=== PATIENT | female | born 1985 | race Caucasian/White ===

== ENCOUNTER 2016-08-13 16:09 | Emergency (ER) | payer OTHER ==
[~2016-08-13 16:09] MED LIST: FLONASE16 GM; ILOTYCIN1 GM OP; KEFLEX500 MG PO; LORTAB 10-5001 EACH PO; NO MEDICATIONS; ORUDIS75 M1; ORUDIS75 M1 DOB; PAXIL PO; VOLTAREN75 MG PO
[2016-08-13 16:27] LABS: BASOPHIL% 0.8 % (0-2.5); EOSINOPHIL# 0.3 X10e3 (0-0.7); HEMATOCRIT 40.2 % (35.0-45.0); HEMOGLOBIN 13.2 gm/dL (12.0-16.0); LYMPHOCYTE# 1.8 X10e3 (1.0-3.5); LYMPHOCYTE% 33.8 % (17.0-45.0); MEAN PLATELET VOLUME 7.8 FL (6.5-11.5); MONOCYTE# 0.5 X10e3 (0-1.0); NEUTROPHIL# 2.7 X10e3 (1.5-7.1); NEUTROPHIL% 51.4 % (40-75); PLATELET COUNT 238 X10e3 (140-420); RED BLOOD COUNT 4.42 X10e (3.90-5.30); RED CELL DISTRIBUTION WIDTH 13.8 % (11.0-15.5); WHITE BLOOD COUNT 5.3 X10e3 (4.0-10.5)
[2016-08-13 16:30] LABS: DIFF IND NO
[2016-08-13 16:54] LABS: BUN/CREATININE RATIO 17.14; CALCIUM SERUM 8.9 mg/dL (8.4-10.2); CREATININE SERUM 0.7 mg/dL (0.6-1.4); GLOM FILT RATE Estimated 117.1 mL/min (>60); POTASSIUM 3.9 mmol/L (3.5-5.1)
== END 2016-08-13 17:40 | disposition home or self-care (01) ==
LOC: CED 16:09
PROVIDERS: Emergency Medicine
DX: L02.416 Cutaneous abscess of left lower limb (principal); F17.210 Nicotine dependence, cigarettes, uncomplicated
CPT/HCPCS: 36415; 80048; 84703; 85025; 87070; 87077; 87186; 87205; 96360; 99284